=== PATIENT | male | born 1945 | race Caucasian/White ===

== ENCOUNTER 2022-03-03 12:29 | Emergency (ER) | payer MEDICARE, OTHER ==
[2022-03-03 13:14] LABS: HEMOGLOBIN 14.9 gm/dl (14.0-17.5); RED BLOOD COUNT 4.41 M/UL (4.20-5.50); WHITE BLOOD COUNT 7.1 K/UL (4.5-11.0)
[2022-03-03] MEDS ORDERED: [UNRECOGNIZED DRUG - REMARK] (15:58)
== END 2022-03-03 16:21 | disposition home or self-care (01) ==
LOC: ER1 12:29
PROVIDERS: Family Medicine
DX: J44.9 Chronic obstructive pulmonary disease, unspecified (principal); R10.31 Right lower quadrant pain; R10.813 Right lower quadrant abdominal tenderness; F17.200 Nicotine dependence, unspecified, uncomplicated
CPT/HCPCS: 71045; 80053; 82550; 82553; 83605; 84484; 85025; 87040; 93005; 94664; 96374; 99285